=== PATIENT | female | born 1995 | race African-American/Black ===

== ENCOUNTER → 2016-10-01 | Outpatient (CLI) | payer MEDICARE, OTHER ==
[~2016-10-01] MED LIST: ABILIFY30 MG PO; ALBUTEROL MININEB NEB; ALBUTEROL20 ml INH; BACTRIM DS TABL1 TA1 PO; BENADRYL25 M3 PO; BUMEX PO; BUMEX1 MG PO; CIPRO PO; COLACE PO; COREG12.5 MG PO; COUMADIN3 MG PO; COUMADIN5 MG PO; COUMADIN7.5 MG PO; DOCUSATE SODIU100 MG PO; IBUPROFEN800 MG PO; K-DUR20 ME1 PO; K-DUR20 ME2 PO; LEVOTHYROXINE100 MC1 PO; LITHIUM CARBON450 MG PO; METROGEL-VAGINA70 GM VG; MIRALAX17 G2 PO; PYRIDIUM PO; ROBITUSSIN-COU237 ML PO; STRATTERA80 MG PO; THORAZINE50 MG DOB; TRILEPTAL300 MG PO; TYLENOL325 M1 PO; VITAMIN D3 COM1 EACH PO; VITAMIN D35000 UNIT PO; VITAMIN D350000 UNIT PO; VITAMIN D50000 UNIT PO; ZANTAC150 MG PO; ZOFRAN PO
--- NOTE | ~2016-10-01 | CR63 ---
[facility] A Service of [facility] & [facility] RADIOLOGY TEXT RESULTS PATIENT: ANGELO MARTINEZ LOCATION: [facility] : [birth year] UNIT #: [id number] AGE: [address]: Edilia Ochoa MD SEX: F ORDER DR: [id number] [facility] [address] [place], [place] [address] [id number] O MR#: [id number] Acc #: [id number] NAME: ANGELO MARTINEZ : 1995 SEX: F STUDY DATE/TIME: 10/01/2016 12:38 UNIT: [facility] ROOM: STUDY DESCRIPTION: CR Chest 2 View Attending Physician: Edilia Ochoa M.D. Referring Physician: Edilia Ochoa M.D. Ordering Physician: Edilia Ochoa M.D. Primary Care Physician: Tono Peraza M.D. MEDICAL IMAGING REPORT This report is preliminary unless electronic signature is present EXAM PA and lateral chest dated 10/01/2016 COMPARISON 07/24/2015 HISTORY Shortness of air, cough and congestion for 3 days. FINDINGS PA and lateral views are obtained. The heart size is now normal. Pulmonary vascular markings are normal and the lungs are clear. Transvenous pacemaker is in good position. CONCLUSION Significant decrease in heart size normal chest. Dictated by... Saturnino Herr M.D. THIS IS AN ELECTRONICALLY VERIFIED REPORT Saturnino Herr M.D. at 10/02/2016 5:03 PM RONALDO/joselin TD: 10/01/2016 16:07 JOB #: [id number] MEDICAL IMAGING REPORT COPY
== END | disposition home or self-care (01) ==
LOC: CRAD 12:17
DX: R06.02 Shortness of breath (principal); R05 Cough; R09.89 Other specified symptoms and signs involving the circulatory and respiratory systems
CPT/HCPCS: 71020

== ENCOUNTER 2017-02-11 13:37 | Emergency (ER) | payer MEDICARE, OTHER ==
--- NOTE | ~2017-02-11 | EKG ---
PATIENT: ANGELO MARTINEZ UNIT #: [id number] Ventricular Rate: 85 BPM Atrial Rate: 85 BPM P-R Interval: 140 ms QRS Duration: 86 ms Q-T Interval: 394 ms QTC Calculation(Bezet): 468 ms P Lind[place]: 41 degrees Calculated R Lind[place]: 32 degrees Calculated T [place]: 78 degrees Diagnosis Line: Normal sinus rhythm Diagnosis Line: Normal ECG Diagnosis Line: When compared with ECG of 19-JUL-2015 19:55, Diagnosis Line: No significant change was found Diagnosis Line: Confirmed by GETACHEW CEDENO MD ([id number]) on 02/11/2017 Diagnosis Line: 6:21:13 PM INTERPRETING MD: WILIAN ELIAS
== END 2017-02-11 14:50 | disposition home or self-care (01) ==
LOC: CED 13:37
DX: R07.89 Other chest pain (principal); Z88.0 Allergy status to penicillin; Z88.8 Allergy status to other drugs, medicaments and biological substances
CPT/HCPCS: 93005; 99285